=== PATIENT | male | born 1965 | race Hispanic/Latino ===

== ENCOUNTER 2021-08-29 13:19 | Inpatient (IN) | payer SELFPAY ==
[2021-08-29 14:12] LABS: Hemoglobin 4.7 g/dL (14.0-18.0); Mean Corpuscular HGB CONC 35.2 g/dL (32.0-36.0); Mean Corpuscular Hemoglobin 32.3 pg (27.0-31.0); Mean Corpuscular Volume 91.8 fL (78.0-98.0); RBC Distribution Width 12.7 % (11.5-14.5); Red Blood Cell (RBC) Count 1.46 mill/uL (4.70-6.10); Reflex for Review?? YES; White Blood Cell (WBC) Count 4.9 thou/uL (4.8-10.8)
[2021-08-29 14:17] LABS: Band 1 % (5-11); Eosinophils 1 % (0-10); Lymphocytes 49 % (21-51); MDiff Complete? YES; Mean Platelet Volume 7.3 fL (7.4-10.4); Monocytes 7 % (0-10); Myelocyte 2 % (0-0); Neutrophil 13 % (42-75); Ovalocytes SLIGHT = 2-5 cells (100X) (0-1/hpf); Platelet Count 43 thou/uL (130-400); Platelet Morphology Comment Appears Decreased; Reactive Lymphocytes 27 % (0-10); Tear Drops SLIGHT = 2-5 cells (100X) (0-1/hpf)
[2021-08-29 14:28] LABS: ALT (SGPT) 12 U/L (8-55); AST (SGOT) 22 U/L (5-34); Alkaline Phosphatase 73 U/L (40-110); Anion Gap 14 mmol/L (10-20); BUN (Urea Nitrogen) 14 mg/dL (8.4-25.7); Bilirubin, Total 0.5 mg/dL (0.2-1.2); Calc. Creatinine Clearance 0 mL/min (70-130); Calcium 8.6 mg/dL (7.8-10.44); Carbon Dioxide 23 mmol/L (22-29); Chloride 104 mmol/L (98-107); Estimated GFR 86; Globulin 2.7 g/dL (2.4-3.5); Glucose 89 mg/dL (70-105); Protein, Total 6.7 g/dL (6.0-8.3); Sodium 137 mmol/L (136-145)
[2021-08-29 15:02] LABS: CK (CPK) 84 U/L (30-200); Lipase 20 U/L (8-78)
[2021-08-29] MEDS ORDERED: Acetaminophen 325 MG TAB PO PRN (15:53)
[2021-08-29] MEDS ORDERED: Ondansetron PF 4 MG/2 ML Vial IVP PRN (15:53)
[2021-08-29] MEDS ORDERED: Ondansetron ODT 4 MG TAB PO PRN (15:53)
[2021-08-29 16:52] LABS: Bilirubin, Total 0.5 mg/dL (0.2-1.2)
[2021-08-29 17:19] LABS: Iron 170 ug/dL (65-175); Iron Binding Capacity, Total 221 mcg/dL (261-462); Transferrin, Serum 177 mg/dL (174-364)
[2021-08-29 20:37] VITALS: BMI 29.2
[2021-08-30 02:25] LABS: Hemoglobin 5.5 g/dL (14.0-18.0)
[2021-08-30 02:47] LABS: Anion Gap 15 mmol/L (10-20); BUN (Urea Nitrogen) 14 mg/dL (8.4-25.7); Calc. Creatinine Clearance 88 mL/min (70-130); Calcium 9.2 mg/dL (7.8-10.44); Carbon Dioxide 23 mmol/L (22-29); Chloride 106 mmol/L (98-107); Estimated GFR 80; Glucose 102 mg/dL (70-105); Potassium 4.5 mmol/L (3.5-5.1); Sodium 139 mmol/L (136-145)
[2021-08-30 06:55] LABS: Hemoglobin 6.4 g/dL (14.0-18.0); Mean Corpuscular Volume 91.3 fL (78.0-98.0); Mean Platelet Volume 7.2 fL (7.4-10.4); Platelet Count 58 thou/uL (130-400); RBC Distribution Width 12.8 % (11.5-14.5); Red Blood Cell (RBC) Count 2.05 mill/uL (4.70-6.10); White Blood Cell (WBC) Count 7.7 thou/uL (4.8-10.8)
[2021-08-30 07:11] LABS: Anion Gap 12 mmol/L (10-20); BUN (Urea Nitrogen) 14 mg/dL (8.4-25.7); Calc. Creatinine Clearance 89 mL/min (70-130); Calcium 8.7 mg/dL (7.8-10.44); Carbon Dioxide 24 mmol/L (22-29); Chloride 104 mmol/L (98-107); Estimated GFR 82; Glucose 92 mg/dL (70-105); Potassium 4.3 mmol/L (3.5-5.1); Sodium 136 mmol/L (136-145)
[2021-08-30 07:24] LABS: Band 2 % (5-11); Lymphocytes 75 % (21-51); MDiff Complete? YES; Monocytes 10 % (0-10); Neutrophil 4 % (42-75); Platelet Morphology Comment Appears Decreased; Reactive Lymphocytes 8 % (0-10)
[2021-08-30] MEDS ORDERED: Prevnar 13-Val Conj/PF 0.5 ML SYRINGE IM ONE (09:00)
[2021-08-30 16:18] VITALS: BP 116/72; TEMP 98.4
[2021-08-31] MEDS ORDERED: Allopurinol 300 MG TAB PO SCH (09:00)
[2021-09-01 15:14] LABS: Hemoglobin A2 2.5 % (1.8-3.2); Hemoglobin F 0 % (0.0-2.0)
== END 2021-08-30 19:00 | disposition home or self-care (01) | DRG 842 ==
LOC: ERS 13:19 → SURG A 15:25 → MSONC 20:14
PROVIDERS: ADMIT Hospitalist; ATTEND Internal Medicine
PROC: 30233N1 Transfusion of Nonautologous Red Blood Cells into Peripheral Vein, Percutaneous Approach (ICD-10-PCS; 2021-08-29)
PROC: 30233R1 Transfusion of Nonautologous Platelets into Peripheral Vein, Percutaneous Approach (ICD-10-PCS; principal; 2021-08-30)
DX: C83.10 Mantle cell lymphoma, unspecified site (principal); D69.6 Thrombocytopenia, unspecified; Z20.822 Contact with and (suspected) exposure to COVID-19; D63.0 Anemia in neoplastic disease; Z90.49 Acquired absence of other specified parts of digestive tract
CPT/HCPCS: 36415; 36430; 71045; 71250; 80048; 80053; 82247; 82550; 83021; 83540; 83550; 83615; 83690; 83880; 84466; 84484; 84550; 85025; 85060; 86850; 86900; 86901; 93005; 94760; J2405; P9016; P9035; U0003; U0005

== ENCOUNTER 2021-09-15 09:49 | Inpatient (IN) | payer SELFPAY ==
[2021-09-15 10:23] LABS: Hemoglobin 3.7 g/dL (14.0-18.0); Mean Corpuscular HGB CONC 35.8 g/dL (32.0-36.0); Mean Corpuscular Hemoglobin 31.7 pg (27.0-31.0); Mean Corpuscular Volume 88.6 fL (78.0-98.0); Mean Platelet Volume 8.6 fL (7.4-10.4); Platelet Count 15 thou/uL (130-400); RBC Distribution Width 13.3 % (11.5-14.5); Red Blood Cell (RBC) Count 1.18 mill/uL (4.70-6.10); White Blood Cell (WBC) Count 21.7 thou/uL (4.8-10.8)
[2021-09-15 10:44] LABS: ALT (SGPT) 17 U/L (8-55); AST (SGOT) 25 U/L (5-34); Albumin 3.9 g/dL (3.5-5.0); Alkaline Phosphatase 121 U/L (40-110); Anion Gap 14 mmol/L (10-20); BUN (Urea Nitrogen) 18 mg/dL (8.4-25.7); Bilirubin, Total 1.3 mg/dL (0.2-1.2); Calc. Creatinine Clearance 0 mL/min (70-130); Carbon Dioxide 22 mmol/L (22-29); Chloride 103 mmol/L (98-107); Estimated GFR 100; Globulin 3.2 g/dL (2.4-3.5); Glucose 114 mg/dL (70-105); Potassium 4.6 mmol/L (3.5-5.1); Protein, Total 7.1 g/dL (6.0-8.3); Sodium 134 mmol/L (136-145)
[2021-09-15 11:07] LABS: Band 1 % (5-11); Lymphocytes 91 % (21-51); MDiff Complete? YES; Metamyelocyte 1 % (0-0); Monocytes 6 % (0-10); Platelet Morphology Comment Appears Decreased; Polychromasia SLIGHT = 2-3 cells (100X) (0-2/hpf)
[2021-09-15] MEDS ORDERED: Ondansetron ODT 4 MG TAB PO PRN (12:39)
[2021-09-15] MEDS ORDERED: Bisacodyl 5 MG TAB PO PRN (12:39)
[2021-09-15] MEDS ORDERED: Bisacodyl 10 MG SUPP PR PRN (12:39)
[2021-09-15] MEDS ORDERED: Senokot S 8.6-50 MG TAB PO PRN (12:39)
[2021-09-15] MEDS ORDERED: Acetaminophen 500 MG TAB ONE (13:22)
[2021-09-15 15:03] LABS: SARS-CoV-2 NAA Rapid Test Not Detected (NotDetected)
[2021-09-15 15:18] LABS: Bilirubin Negative (Negative); Blood, Urine Negative (Negative); Clarity Clear (Clear); Glucose, Urine (Dipstick) Normal (Negative); Ketone, Urine Negative (Negative); Leukocyte Negative Leu/uL (Negative); Nitrite Negative (Negative); Protein, Urine (Dipstick) Negative (Neg-Trace); Specific Gravity, Urine 1.015 (1.002-1.036); Urobilinogen 6 mg/dL (Less than 2)
[2021-09-15 16:22] VITALS: BMI 28.3
[2021-09-15] MEDS: Acetaminophen 325 MG TAB PO PRN (19:50)
[2021-09-15] MEDS: Benzonatate 100 MG CAP PO SCH (19:51)
[2021-09-16 05:46] LABS: Hemoglobin 5.4 g/dL (14.0-18.0); Mean Corpuscular HGB CONC 34.9 g/dL (32.0-36.0); Mean Corpuscular Hemoglobin 30.6 pg (27.0-31.0); Mean Corpuscular Volume 87.8 fL (78.0-98.0); Mean Platelet Volume 9.6 fL (7.4-10.4); Platelet Count 10 thou/uL (130-400); RBC Distribution Width 14.2 % (11.5-14.5); Red Blood Cell (RBC) Count 1.77 mill/uL (4.70-6.10); White Blood Cell (WBC) Count 20.5 thou/uL (4.8-10.8)
[2021-09-16 06:10] LABS: Burr Cells SLIGHT = 2-5 cells (100X) (0-1/hpf); Lymphocytes 96 % (21-51); MDiff Complete? YES; Monocytes 4 % (0-10); Platelet Morphology Comment Appears Decreased
[2021-09-16 06:19] LABS: ALT (SGPT) 11 U/L (8-55); AST (SGOT) 17 U/L (5-34); Albumin 3.4 g/dL (3.5-5.0); Alkaline Phosphatase 107 U/L (40-110); Anion Gap 15 mmol/L (10-20); BUN (Urea Nitrogen) 18 mg/dL (8.4-25.7); Bilirubin, Total 1.9 mg/dL (0.2-1.2); Calc. Creatinine Clearance 107 mL/min (70-130); Calcium 8.4 mg/dL (7.8-10.44); Carbon Dioxide 21 mmol/L (22-29); Chloride 106 mmol/L (98-107); Estimated GFR 101; Globulin 2.7 g/dL (2.4-3.5); Glucose 102 mg/dL (70-105); Potassium 4.1 mmol/L (3.5-5.1); Protein, Total 6.1 g/dL (6.0-8.3); Sodium 138 mmol/L (136-145)
[2021-09-16] MEDS: Allopurinol 300 MG TAB PO SCH (08:33)
[2021-09-16] MEDS: Benzonatate 100 MG CAP PO SCH ×3 (08:33→19:42)
[2021-09-16] MEDS ORDERED: ceFAZolin 2 GM/Dextrose 50 ML 2 GM in Premix Bag 1 BAG IVPB SCH (10:15)
[2021-09-16] MEDS ORDERED: Lactated Ringer's 1,000 ML IV SCH (10:15)
[2021-09-16] MEDS ORDERED: fentaNYL Citrate/PF 100 MCG/2 ML SYRINGE ONE ×2 (15:26→15:37)
[2021-09-16] MEDS ORDERED: Bupivacaine/Epinephrine 0.25% 30 ML VIAL ONE (15:28)
[2021-09-16] MEDS ORDERED: Lidocaine 2% PF 5 ML VIAL ONE (15:36)
[2021-09-16] MEDS ORDERED: HYDROmorphone 2 MG/ML VIAL SLOW IVP PRN (15:49)
[2021-09-16] MEDS ORDERED: Meperidine HCl/PF 25 MG/ML VIAL SLOW IVP PRN ×2 (15:49)
[2021-09-16] MEDS ORDERED: Promethazine HCl 25 MG/ML VIAL IM PRN ×2 (15:49→17:17)
[2021-09-16] MEDS ORDERED: Ondansetron HCl/PF 4 MG/2 ML Vial IVP PRN ×2 (15:49→17:17)
[2021-09-16] MEDS ORDERED: Promethazine HCl 25 MG/ML VIAL IVPB PRN ×2 (15:49→17:17)
[2021-09-16] MEDS ORDERED: Morphine Sulfate 2 MG/ML SYRINGE SLOW IVP PRN (15:49)
[2021-09-16] MEDS ORDERED: Sodium Chloride 0.9% 100 ML ONE (15:55)
[2021-09-16] MEDS ORDERED: CEFAZOLIN 2 GM VIAL ONE (15:55)
[2021-09-16] MEDS ORDERED: Lidocaine 1% PF 5 ML VIAL ONE (16:00)
[2021-09-16] MEDS ORDERED: PROPOFOL 200 MG/20 ML VIAL ONE (16:00)
[2021-09-16] MEDS ORDERED: Ondansetron PF 4 MG/2 ML Vial ONE (16:00)
[2021-09-16] MEDS: traMADol HCl 50 MG TAB PO PRN (19:42)
[2021-09-16] MEDS: Acetaminophen 325 MG TAB PO PRN (23:51)
[2021-09-17] MEDS: traMADol HCl 50 MG TAB PO PRN (04:35)
[2021-09-17 05:59] LABS: Band 2 % (5-11); Hemoglobin 6.8 g/dL (14.0-18.0); Hypochromia SLIGHT = 6-15 cells (100X) (0-5/hpf); Lymphocytes 52 % (21-51); MDiff Complete? YES; Mean Corpuscular HGB CONC 34.9 g/dL (32.0-36.0); Mean Corpuscular Hemoglobin 30.1 pg (27.0-31.0); Mean Corpuscular Volume 86.3 fL (78.0-98.0); Mean Platelet Volume 8.6 fL (7.4-10.4); Monocytes 20 % (0-10); Neutrophil 14 % (42-75); Platelet Count 33 thou/uL (130-400); Platelet Morphology Comment Appears Decreased; RBC Distribution Width 14.6 % (11.5-14.5); Reactive Lymphocytes 12 % (0-10); Red Blood Cell (RBC) Count 2.27 mill/uL (4.70-6.10); White Blood Cell (WBC) Count 11.3 thou/uL (4.8-10.8)
[2021-09-17 06:02] LABS: Anion Gap 15 mmol/L (10-20); BUN (Urea Nitrogen) 20 mg/dL (8.4-25.7); Calc. Creatinine Clearance 115 mL/min (70-130); Calcium 8.9 mg/dL (7.8-10.44); Carbon Dioxide 21 mmol/L (22-29); Chloride 105 mmol/L (98-107); Estimated GFR 103; Glucose 96 mg/dL (70-105); Potassium 4.2 mmol/L (3.5-5.1); Sodium 137 mmol/L (136-145)
[2021-09-17] MEDS: Allopurinol 300 MG TAB PO SCH (09:59)
[2021-09-17] MEDS: Benzonatate 100 MG CAP PO SCH ×3 (09:59→20:40)
[2021-09-17] MEDS: HYDROcodone/Acetaminophen 5/325 mg Tablet PO PRN ×2 (10:03→20:38)
[2021-09-17] MEDS ORDERED: Fentanyl 100 MCG/2 ML VIAL ONE (11:14)
[2021-09-17] MEDS ORDERED: Sodium Bicarbonate 2.5 MEQ/5 ML VIAL ONE (11:14)
[2021-09-17] MEDS ORDERED: Guaifenesin DM 100-10/5 ML UDCUP PO PRN (20:59)
[2021-09-18] MEDS: HYDROcodone/Acetaminophen 5/325 mg Tablet PO PRN ×3 (03:15→20:51)
[2021-09-18 06:03] LABS: ALT (SGPT) 12 U/L (8-55); AST (SGOT) 18 U/L (5-34); Albumin 3.5 g/dL (3.5-5.0); Alkaline Phosphatase 121 U/L (40-110); Anion Gap 13 mmol/L (10-20); BUN (Urea Nitrogen) 18 mg/dL (8.4-25.7); Bilirubin, Total 1.3 mg/dL (0.2-1.2); Calc. Creatinine Clearance 112 mL/min (70-130); Calcium 8.8 mg/dL (7.8-10.44); Carbon Dioxide 25 mmol/L (22-29); Chloride 102 mmol/L (98-107); Estimated GFR 102; Glucose 112 mg/dL (70-105); Potassium 3.7 mmol/L (3.5-5.1); Protein, Total 6.5 g/dL (6.0-8.3); Sodium 136 mmol/L (136-145)
[2021-09-18 06:40] LABS: Band 1 % (5-11); Hemoglobin 7.2 g/dL (14.0-18.0); Lymphocytes 79 % (21-51); MDiff Complete? YES; Mean Corpuscular HGB CONC 34.8 g/dL (32.0-36.0); Mean Corpuscular Hemoglobin 30.1 pg (27.0-31.0); Mean Corpuscular Volume 86.5 fL (78.0-98.0); Mean Platelet Volume 8.3 fL (7.4-10.4); Metamyelocyte 1 % (0-0); Monocytes 3 % (0-10); Myelocyte 1 % (0-0); Neutrophil 5 % (42-75); Platelet Count 24 thou/uL (130-400); Platelet Morphology Comment Appears Decreased; RBC Distribution Width 14.3 % (11.5-14.5); RBC Morphology Normal; Reactive Lymphocytes 3 % (0-10); White Blood Cell (WBC) Count 5.9 thou/uL (4.8-10.8)
[2021-09-18] MEDS: Allopurinol 300 MG TAB PO SCH (10:31)
[2021-09-18] MEDS: Benzonatate 100 MG CAP PO SCH ×3 (10:31→20:51)
[2021-09-19] MEDS: Allopurinol 300 MG TAB PO SCH (08:34)
[2021-09-19] MEDS: Benzonatate 100 MG CAP PO SCH ×3 (08:34→20:06)
[2021-09-19 09:34] LABS: Hemoglobin 7.3 g/dL (14.0-18.0); Mean Corpuscular HGB CONC 33.5 g/dL (32.0-36.0); Mean Corpuscular Hemoglobin 29.3 pg (27.0-31.0); Mean Corpuscular Volume 87.4 fL (78.0-98.0); Mean Platelet Volume 9.2 fL (7.4-10.4); Platelet Count 19 thou/uL (130-400); RBC Distribution Width 13.9 % (11.5-14.5); Red Blood Cell (RBC) Count 2.49 mill/uL (4.70-6.10); White Blood Cell (WBC) Count 4.4 thou/uL (4.8-10.8)
[2021-09-19 10:26] LABS: Lymphocytes 93 % (21-51); MDiff Complete? YES; Monocytes 3 % (0-10); Neutrophil 4 % (42-75); Platelet Morphology Comment Appears Decreased; RBC Morphology Normal
[2021-09-20] MEDS: traMADol HCl 50 MG TAB PO PRN (05:16)
[2021-09-20] MEDS: Allopurinol 300 MG TAB PO SCH (09:23)
[2021-09-20] MEDS: Benzonatate 100 MG CAP PO SCH ×3 (09:23→19:57)
[2021-09-20 15:02] LABS: Hemoglobin 8.4 g/dL (14.0-18.0); Mean Corpuscular HGB CONC 35.6 g/dL (32.0-36.0); Mean Corpuscular Hemoglobin 30.8 pg (27.0-31.0); Mean Corpuscular Volume 86.4 fL (78.0-98.0); Mean Platelet Volume 8.4 fL (7.4-10.4); Platelet Count 31 thou/uL (130-400); RBC Distribution Width 13.6 % (11.5-14.5); Red Blood Cell (RBC) Count 2.73 mill/uL (4.70-6.10); White Blood Cell (WBC) Count 5.4 thou/uL (4.8-10.8)
[2021-09-20 15:42] LABS: Band 3 % (5-11); Differential Comment Immature Cell(s); Lymphocytes 71 % (21-51); MDiff Complete? YES; Monocytes 16 % (0-10); Myelocyte 1 % (0-0); Neutrophil 1 % (42-75); Ovalocytes SLIGHT = 2-5 cells (100X) (0-1/hpf); Platelet Morphology Comment Appears Decreased; Polychromasia SLIGHT = 2-3 cells (100X) (0-2/hpf); Reactive Lymphocytes 4 % (0-10)
[2021-09-21 05:37] LABS: Hemoglobin 7.5 g/dL (14.0-18.0); Mean Corpuscular HGB CONC 34.7 g/dL (32.0-36.0); Mean Corpuscular Hemoglobin 29.9 pg (27.0-31.0); Mean Corpuscular Volume 86.2 fL (78.0-98.0); Mean Platelet Volume 8.5 fL (7.4-10.4); Platelet Count 26 thou/uL (130-400); RBC Distribution Width 13.5 % (11.5-14.5); White Blood Cell (WBC) Count 6.8 thou/uL (4.8-10.8)
[2021-09-21 05:52] LABS: Band 1 % (5-11); Hypochromia SLIGHT = 6-15 cells (100X) (0-5/hpf); Lymphocytes 81 % (21-51); MDiff Complete? YES; Monocytes 9 % (0-10); Neutrophil 8 % (42-75); Platelet Morphology Comment Appears Decreased; Reactive Lymphocytes 1 % (0-10)
[2021-09-21] MEDS: Allopurinol 300 MG TAB PO SCH (10:44)
[2021-09-21] MEDS: Benzonatate 100 MG CAP PO SCH ×3 (10:44→20:19)
[2021-09-22 05:06] LABS: Hemoglobin 8.3 g/dL (14.0-18.0); Mean Corpuscular HGB CONC 34.6 g/dL (32.0-36.0); Mean Corpuscular Hemoglobin 29.3 pg (27.0-31.0); Mean Corpuscular Volume 84.6 fL (78.0-98.0); Mean Platelet Volume 8.8 fL (7.4-10.4); Platelet Count 26 thou/uL (130-400); RBC Distribution Width 13.2 % (11.5-14.5); Red Blood Cell (RBC) Count 2.82 mill/uL (4.70-6.10); White Blood Cell (WBC) Count 8.5 thou/uL (4.8-10.8)
[2021-09-22 05:59] LABS: Band 2 % (5-11); Lymphocytes 84 % (21-51); MDiff Complete? YES; Monocytes 4 % (0-10); Myelocyte 1 % (0-0); Neutrophil 1 % (42-75); Platelet Morphology Comment Appears Decreased; RBC Morphology Normal
[2021-09-22] MEDS: Benzonatate 100 MG CAP PO SCH ×3 (10:50→22:25)
[2021-09-22] MEDS: Allopurinol 300 MG TAB PO SCH (10:50)
[2021-09-22] MEDS ORDERED: Acetaminophen 500 MG TAB PO PRN (13:58)
[2021-09-22] MEDS ORDERED: diphenhydrAMINE 50 MG in Sodium Chloride 0.9% 50 ML IVPB SCH (14:00)
[2021-09-22 14:48] LABS: Reference Lab Name NEOGENOMICS
[2021-09-22 14:49] LABS: Ref Lab Test Ordered MORPHOLOGY ANALYSIS
[2021-09-23 05:31] LABS: Hemoglobin 7.3 g/dL (14.0-18.0); Mean Corpuscular HGB CONC 35.4 g/dL (32.0-36.0); Mean Corpuscular Hemoglobin 29.8 pg (27.0-31.0); Mean Corpuscular Volume 84.2 fL (78.0-98.0); Mean Platelet Volume 8.3 fL (7.4-10.4); Platelet Count 19 thou/uL (130-400); Red Blood Cell (RBC) Count 2.44 mill/uL (4.70-6.10); White Blood Cell (WBC) Count 8.2 thou/uL (4.8-10.8)
[2021-09-23 05:48] LABS: Band 4 % (5-11); Hypochromia SLIGHT = 6-15 cells (100X) (0-5/hpf); Lymphocytes 82 % (21-51); MDiff Complete? YES; Monocytes 3 % (0-10); Neutrophil 11 % (42-75); Platelet Morphology Comment Appears Decreased
[2021-09-23] MEDS ORDERED: BENDAMUSTINE IVPB SCH ×2 (06:00→09:30)
[2021-09-23] MEDS ORDERED: SODIUM CHLORIDE 0.9% IVPB SCH ×2 (06:00→09:30)
[2021-09-23] MEDS: Benzonatate 100 MG CAP PO SCH ×3 (09:45→20:34)
[2021-09-23] MEDS: Allopurinol 300 MG TAB PO SCH (09:45)
[2021-09-23] MEDS: Ondansetron PF 4 MG/2 ML Vial IVP PRN (15:21)
[2021-09-24] MEDS: Ondansetron PF 4 MG/2 ML Vial IVP PRN (00:31)
[2021-09-24 05:24] LABS: ALT (SGPT) 47 U/L (8-55); AST (SGOT) 63 U/L (5-34); Albumin 3.8 g/dL (3.5-5.0); Alkaline Phosphatase 158 U/L (40-110); Anion Gap 13 mmol/L (10-20); BUN (Urea Nitrogen) 23 mg/dL (8.4-25.7); Bilirubin, Total 0.7 mg/dL (0.2-1.2); Calc. Creatinine Clearance 77 mL/min (70-130); Calcium 9.2 mg/dL (7.8-10.44); Carbon Dioxide 25 mmol/L (22-29); Chloride 103 mmol/L (98-107); Estimated GFR 71; Glucose 102 mg/dL (70-105); Potassium 4.5 mmol/L (3.5-5.1); Protein, Total 6.8 g/dL (6.0-8.3); Sodium 136 mmol/L (136-145); Uric Acid 4.7 mg/dL (3.5-7.2)
[2021-09-24 06:34] LABS: Hemoglobin 7.2 g/dL (14.0-18.0); Mean Corpuscular HGB CONC 34.6 g/dL (32.0-36.0); Mean Corpuscular Hemoglobin 29.2 pg (27.0-31.0); Mean Corpuscular Volume 84.2 fL (78.0-98.0); Mean Platelet Volume 7.9 fL (7.4-10.4); Platelet Count 32 thou/uL (130-400); RBC Distribution Width 13.3 % (11.5-14.5); Red Blood Cell (RBC) Count 2.46 mill/uL (4.70-6.10); White Blood Cell (WBC) Count 2.2 thou/uL (4.8-10.8)
[2021-09-24] MEDS ORDERED: BENDAMUSTINE IVPB SCH (06:45)
[2021-09-24] MEDS ORDERED: SODIUM CHLORIDE 0.9% IVPB SCH (06:45)
[2021-09-24 07:07] LABS: Anisocytosis SLIGHT = 6-15 cells (100X) (0-5/hpf); Band 10 % (5-11); Lymphocytes 71 % (21-51); MDiff Complete? YES; Metamyelocyte 1 % (0-0); Monocytes 10 % (0-10); Neutrophil 8 % (42-75); Platelet Morphology Comment Appears Decreased
[2021-09-24] MEDS: Allopurinol 300 MG TAB PO SCH (09:16)
[2021-09-24] MEDS: Benzonatate 100 MG CAP PO SCH ×3 (09:16→20:41)
[2021-09-24] MEDS ORDERED: PEGFILGRASTIM-JMDB 6 MG/0.6 ML SYRINGE SQ SCH (12:15)
[2021-09-25] MEDS: Ondansetron PF 4 MG/2 ML Vial IVP PRN (06:04)
[2021-09-25 06:37] LABS: ALT (SGPT) 39 U/L (8-55); AST (SGOT) 35 U/L (5-34); Albumin 3.7 g/dL (3.5-5.0); Alkaline Phosphatase 131 U/L (40-110); Anion Gap 12 mmol/L (10-20); BUN (Urea Nitrogen) 28 mg/dL (8.4-25.7); Bilirubin, Total 0.8 mg/dL (0.2-1.2); Calc. Creatinine Clearance 78 mL/min (70-130); Carbon Dioxide 24 mmol/L (22-29); Chloride 103 mmol/L (98-107); Estimated GFR 72; Glucose 100 mg/dL (70-105); Potassium 4.2 mmol/L (3.5-5.1); Protein, Total 6.7 g/dL (6.0-8.3); Sodium 135 mmol/L (136-145)
[2021-09-25 06:47] LABS: Hemoglobin 6.5 g/dL (14.0-18.0); Mean Corpuscular HGB CONC 34.3 g/dL (32.0-36.0); Mean Corpuscular Hemoglobin 29.2 pg (27.0-31.0); Mean Corpuscular Volume 85.1 fL (78.0-98.0); Mean Platelet Volume 8.5 fL (7.4-10.4); Platelet Count 27 thou/uL (130-400); RBC Distribution Width 13.2 % (11.5-14.5); Red Blood Cell (RBC) Count 2.22 mill/uL (4.70-6.10); White Blood Cell (WBC) Count 1.6 thou/uL (4.8-10.8)
[2021-09-25 07:05] LABS: Band 4 % (5-11); Differential Comment Immature Cell(s); Lymphocytes 68 % (21-51); MDiff Complete? YES; Metamyelocyte 3 % (0-0); Monocytes 10 % (0-10); Myelocyte 6 % (0-0); Neutrophil 7 % (42-75); Platelet Morphology Comment Appears Decreased
[2021-09-25] MEDS: Benzonatate 100 MG CAP PO SCH ×3 (07:50→21:17)
[2021-09-25] MEDS: Allopurinol 300 MG TAB PO SCH (07:50)
[2021-09-25 17:45] LABS: Reference Lab Name NEOGENOMICS
[2021-09-25 17:56] LABS: Ref Lab Test Ordered FISH CLL
[2021-09-26 06:01] LABS: Hemoglobin 8.2 g/dL (14.0-18.0); Mean Corpuscular HGB CONC 34.3 g/dL (32.0-36.0); Mean Corpuscular Hemoglobin 28.6 pg (27.0-31.0); Mean Corpuscular Volume 83.4 fL (78.0-98.0); Platelet Count 21 thou/uL (130-400); RBC Distribution Width 13.8 % (11.5-14.5); Red Blood Cell (RBC) Count 2.87 mill/uL (4.70-6.10); White Blood Cell (WBC) Count 1.6 thou/uL (4.8-10.8)
[2021-09-26 06:07] LABS: ALT (SGPT) 33 U/L (8-55); AST (SGOT) 23 U/L (5-34); Albumin 3.8 g/dL (3.5-5.0); Alkaline Phosphatase 120 U/L (40-110); Anion Gap 14 mmol/L (10-20); BUN (Urea Nitrogen) 25 mg/dL (8.4-25.7); Bilirubin, Total 1.1 mg/dL (0.2-1.2); Calc. Creatinine Clearance 98 mL/min (70-130); Calcium 9.1 mg/dL (7.8-10.44); Carbon Dioxide 23 mmol/L (22-29); Chloride 103 mmol/L (98-107); Estimated GFR 96; Glucose 95 mg/dL (70-105); Potassium 4.3 mmol/L (3.5-5.1); Protein, Total 6.8 g/dL (6.0-8.3); Sodium 136 mmol/L (136-145); Uric Acid 4.6 mg/dL (3.5-7.2)
[2021-09-26 06:41] LABS: Band 14 % (5-11); Lymphocytes 35 % (21-51); MDiff Complete? YES; Metamyelocyte 1 % (0-0); Monocytes 24 % (0-10); Myelocyte 4 % (0-0); Neutrophil 22 % (42-75); Platelet Morphology Comment Appears Decreased
[2021-09-26 08:19] VITALS: BP 120/67
[2021-09-26] MEDS: Allopurinol 300 MG TAB PO SCH (09:57)
[2021-09-26] MEDS: Benzonatate 100 MG CAP PO SCH (09:57)
[2021-09-26 12:33] VITALS: TEMP 98.1
[2021-09-26] MEDS: Ondansetron PF 4 MG/2 ML Vial IVP PRN (14:54)
[2021-09-28 11:27] LABS: Reference Lab Name NEOGENOMICS
[2021-09-28 11:29] LABS: Ref Lab Test Ordered FULL CONSULT
== END 2021-09-26 16:06 | disposition home or self-care (01) | DRG 823 ==
LOC: SUATTDRO 09:49 → ERS 09:49 → MSONC 12:28
PROVIDERS: ADMIT Family Medicine; ATTEND Family Medicine
PROC: 30233N1 Transfusion of Nonautologous Red Blood Cells into Peripheral Vein, Percutaneous Approach (ICD-10-PCS; 2021-09-15)
PROC: 07B50ZX Excision of Right Axillary Lymphatic, Open Approach, Diagnostic (ICD-10-PCS; 2021-09-16)
PROC: 0JH60WZ Insertion of Totally Implantable Vascular Access Device into Chest Subcutaneous Tissue and Fascia, Open Approach (ICD-10-PCS; 2021-09-16)
PROC: 02HV33Z Insertion of Infusion Device into Superior Vena Cava, Percutaneous Approach (ICD-10-PCS; 2021-09-16)
PROC: B5181ZA Fluoroscopy of Superior Vena Cava using Low Osmolar Contrast, Guidance (ICD-10-PCS; 2021-09-16)
PROC: 6A551Z2 Pheresis of Platelets, Multiple (ICD-10-PCS; 2021-09-16)
PROC: 07DR3ZX Extraction of Iliac Bone Marrow, Percutaneous Approach, Diagnostic (ICD-10-PCS; 2021-09-17)
PROC: 079T3ZX Drainage of Bone Marrow, Percutaneous Approach, Diagnostic (ICD-10-PCS; 2021-09-17)
PROC: 3E0430M Introduction of Antineoplastic, Monoclonal Antibody, into Central Vein, Percutaneous Approach (ICD-10-PCS; principal; 2021-09-23)
PROC: 3E04305 Introduction of Other Antineoplastic into Central Vein, Percutaneous Approach (ICD-10-PCS; 2021-09-23)
DX: C83.18 Mantle cell lymphoma, lymph nodes of multiple sites (principal); D61.810 Antineoplastic chemotherapy induced pancytopenia; E87.1 Hypo-osmolality and hyponatremia; Z20.822 Contact with and (suspected) exposure to COVID-19; D63.0 Anemia in neoplastic disease; T45.1X5A Adverse effect of antineoplastic and immunosuppressive drugs, initial encounter; Z88.8 Allergy status to other drugs, medicaments and biological substances; Z90.49 Acquired absence of other specified parts of digestive tract
CPT/HCPCS: 36415; 36430; 38222; 71045; 77012; 80048; 80053; 81003; 82728; 83540; 83615; 84550; 85025; 85097; 86850; 86860; 86870; 86880; 86900; 86901; 86905; 86921; 86922; 86978; 88184; 88185; 88237; 88305; 88307; 88311; 88313; 88325; 88341; 88342; 93005; C1788; C1889; J0690; J1200; J1642; J2001; J2405; J2704; J3010; J3490; J7030; J9034; P9016; P9035; Q5108; Q5115; U0003; U0005

== ENCOUNTER 2021-10-05 08:57 | Day surgery (SDC) | payer SELFPAY ==
[2021-10-05] MEDS ORDERED: Acetaminophen 500 MG TAB ONE (09:29)
[2021-10-05] MEDS ORDERED: diphenhydrAMINE 25 MG CAP ONE (09:29)
[2021-10-05 10:15] VITALS: TEMP 98.3
[2021-10-05 12:38] VITALS: BP 108/58
== END 2021-10-05 15:13 | disposition home or self-care (01) ==
LOC: ONC/OP 08:57
PROVIDERS: ATTEND Internal Medicine Hematology & Oncology
PROC: 30233N1 Transfusion of Nonautologous Red Blood Cells into Peripheral Vein, Percutaneous Approach (ICD-10-PCS; principal; 2021-10-05)
DX: D64.9 Anemia, unspecified (principal); D69.6 Thrombocytopenia, unspecified
CPT/HCPCS: 36430; 86850; 86870; 86900; 86901; 86922; J1642; P9016

== ENCOUNTER 2021-10-20 13:58 | Day surgery (SDC) | payer SELFPAY ==
[2021-10-20 14:31] VITALS: BMI 27.5
[2021-10-20] MEDS ORDERED: diphenhydrAMINE 25 MG CAP PO PRN (15:39)
[2021-10-20] MEDS: Acetaminophen 500 MG TAB PO PRN ×2 (18:06→22:27)
[2021-10-21 03:34] VITALS: BP 111/55; TEMP 98
[2021-10-21 06:38] LABS: #Eosinphils 0.1 thou/uL (0.0-0.7); #Lymphocytes 1.3 thou/uL (1.20-3.40); #Monocytes 0.5 thou/uL (0.11-0.59); #Neutrophils 1.5 thou/uL (1.40-6.50); %Basophils 0.4 % (0.0-1.0); %Eosinophils 2.9 % (0.0-10.0); %Lymphocytes 39.6 % (21.0-51.0); %Monocytes 14.3 % (0.0-10.0); %Neutrophils 42.8 % (42.0-75.0); Hemoglobin 5.4 g/dL (14.0-18.0); Mean Corpuscular HGB CONC 35.4 g/dL (32.0-36.0); Mean Corpuscular Hemoglobin 29.9 pg (27.0-31.0); Mean Corpuscular Volume 84.5 fL (78.0-98.0); Mean Platelet Volume 7.5 fL (7.4-10.4); Platelet Count 114 thou/uL (130-400); Platelet Morphology Comment Appears Decreased; RBC Distribution Width 13.4 % (11.5-14.5); Red Blood Cell (RBC) Count 1.81 mill/uL (4.70-6.10); White Blood Cell (WBC) Count 3.4 thou/uL (4.8-10.8)
[2021-10-21] MEDS ORDERED: Prevnar 13-Val Conj/PF 0.5 ML SYRINGE IM ONE (09:00)
== END 2021-10-21 04:05 | disposition home or self-care (01) ==
LOC: SDC 13:58 → 2NO 14:00 → SDC 10-21 04:05
PROVIDERS: ATTEND Internal Medicine Hematology & Oncology
PROC: 30233N1 Transfusion of Nonautologous Red Blood Cells into Peripheral Vein, Percutaneous Approach (ICD-10-PCS; principal; 2021-10-20)
DX: D64.9 Anemia, unspecified (principal); Z88.8 Allergy status to other drugs, medicaments and biological substances; Z20.822 Contact with and (suspected) exposure to COVID-19
CPT/HCPCS: 36430; 85025; 86850; 86900; 86901; 86921; J1642; P9016; U0003; U0005

== ENCOUNTER 2021-10-28 09:37 | Day surgery (SDC) | payer SELFPAY ==
[2021-10-28] MEDS ORDERED: diphenhydrAMINE 25 MG CAP ONE (09:58)
[2021-10-28] MEDS ORDERED: Acetaminophen 500 MG TAB ONE (09:58)
[2021-10-28 15:58] VITALS: BP 115/55; TEMP 98.3
== END 2021-10-28 15:59 | disposition home or self-care (01) ==
LOC: ONC/OP 09:37
PROVIDERS: ATTEND Internal Medicine Hematology & Oncology
PROC: 30233N1 Transfusion of Nonautologous Red Blood Cells into Peripheral Vein, Percutaneous Approach (ICD-10-PCS; principal; 2021-10-28)
DX: D64.9 Anemia, unspecified (principal); D69.6 Thrombocytopenia, unspecified; Z88.8 Allergy status to other drugs, medicaments and biological substances
CPT/HCPCS: 36430; 86850; 86900; 86901; 86922; J1642; P9016

== ENCOUNTER 2021-11-16 10:13 | Day surgery (SDC) | payer SELFPAY ==
[~2021-11-16 10:13] MED LIST: Acetaminophen 500 MG TAB PO SCH; diphenhydrAMINE 25 MG CAP PO SCH
[2021-11-16] MEDS ORDERED: Acetaminophen 500 MG TAB ONE (10:25)
[2021-11-16] MEDS ORDERED: diphenhydrAMINE 25 MG CAP ONE (10:25)
[2021-11-16 14:40] VITALS: BP 119/59; TEMP 98.5
== END 2021-11-16 14:41 | disposition home or self-care (01) ==
LOC: ONC/OP 10:13
PROVIDERS: ATTEND Internal Medicine Hematology & Oncology
PROC: 30233N1 Transfusion of Nonautologous Red Blood Cells into Peripheral Vein, Percutaneous Approach (ICD-10-PCS; principal; 2021-11-16)
DX: D64.9 Anemia, unspecified (principal); D69.6 Thrombocytopenia, unspecified; Z88.8 Allergy status to other drugs, medicaments and biological substances
CPT/HCPCS: 36430; 86850; 86900; 86901; 86922; J1642; P9016

== ENCOUNTER 2021-11-24 09:31 | Day surgery (SDC) | payer SELFPAY ==
[2021-11-24] MEDS ORDERED: diphenhydrAMINE 25 MG CAP ONE (10:40)
[2021-11-24] MEDS ORDERED: Acetaminophen 500 MG TAB ONE (10:40)
[2021-11-24 17:24] VITALS: BP 135/61; TEMP 97.7
== END 2021-11-24 17:25 | disposition home or self-care (01) ==
LOC: ONC/OP 09:31
PROVIDERS: ATTEND Internal Medicine Hematology & Oncology
PROC: 30233N1 Transfusion of Nonautologous Red Blood Cells into Peripheral Vein, Percutaneous Approach (ICD-10-PCS; principal; 2021-11-24)
DX: D64.9 Anemia, unspecified (principal); Z88.8 Allergy status to other drugs, medicaments and biological substances
CPT/HCPCS: 36430; 86850; 86900; 86901; 86922; J1642; P9016

== ENCOUNTER 2023-09-23 12:07 | Emergency (ER) | payer OTHER, SELFPAY ==
[2023-09-23 12:59] LABS: #Basophils 0.06 10x3/uL (0.0-0.2); %Basophils 0.7 % (0.0-1.0); %Eosinophils 4.5 % (0.0-10.0); %Lymphocytes 39.3 % (21.0-51.0); %Monocytes 9.5 % (0.0-10.0); Hematocrit 39.7 % (42.0-52.0); Hemoglobin 13.9 g/dL (14.0-18.0); Mean Corpuscular Hemoglobin 33.5 pg (27.0-31.0); Mean Corpuscular Volume 95.7 fL (78.0-98.0); Mean Platelet Volume 9.2 fL (7.4-10.4); Platelet Count 93 10x3/uL (130-400); RBC Distribution Width 13.6 % (11.5-14.5); Red Blood Cell (RBC) Count 4.15 mill/uL (4.70-6.10)
[2023-09-23 13:10] LABS: ALT (SGPT) 43 U/L (8-55); AST (SGOT) 39 U/L (5-34); Alkaline Phosphatase 62 U/L (40-110); Anion Gap 13 mmol/L (10-20); BUN (Urea Nitrogen) 14 mg/dL (8.4-25.7); Bilirubin, Total 0.7 mg/dL (0.2-1.2); Calc. Creatinine Clearance 0 mL/min (70-130); Calcium 9.7 mg/dL (7.8-10.44); Carbon Dioxide 22 mmol/L (22-29); Chloride 106 mmol/L (98-107); Estimated GFR 100; Globulin 2.8 g/dL (2.4-3.5); Glucose 90 mg/dL (70-105); Potassium 4.1 mmol/L (3.5-5.1); Protein, Total 6.8 g/dL (6.0-8.3); Sodium 137 mmol/L (136-145)
[2023-09-23 13:12] LABS: Prothrombin Time 13.5 sec (12.0-14.7)
== END 2023-09-23 16:42 | disposition home or self-care (01) ==
LOC: ERS 12:07
DX: R22.0 Localized swelling, mass and lump, head (principal); R22.1 Localized swelling, mass and lump, neck
CPT/HCPCS: 36415; 80053; 85025; 85610; 85730; 86850; 86900; 86901; 99283

== ENCOUNTER → 2023-11-24 | Day surgery (SDC) | payer OTHER, SELFPAY ==
[~2023-11-24] MED LIST changes: -Acetaminophen 500 MG TAB PO SCH; +Iopamidol 30 ML ONE; +Midazolam HCl 2 mg/2 ml Vial ONE; -diphenhydrAMINE 25 MG CAP PO SCH; +fentaNYL 50 mcg/mL 1 mL Vial ONE
[2023-11-24 09:58] LABS: Hematocrit 18.5 % (42.0-52.0); Hemoglobin 6.5 g/dL (14.0-18.0); Mean Corpuscular HGB CONC 35.1 g/dL (32.0-36.0); Mean Corpuscular Hemoglobin 32.2 pg (27.0-31.0); Mean Corpuscular Volume 91.6 fL (78.0-98.0); Mean Platelet Volume 10.4 fL (7.4-10.4); Platelet Count 42 10x3/uL (130-400); RBC Distribution Width 13.5 % (11.5-14.5); Red Blood Cell (RBC) Count 2.02 mill/uL (4.70-6.10)
[2023-11-24 10:07] LABS: INR-International Normal Ratio 1.1; Prothrombin Time 13.7 sec (12.0-14.7)
[2023-11-24 10:08] LABS: PTT 33.8 sec (22.9-36.1)
[2023-11-24 10:23] LABS: Band 1 % (5-11); Eosinophils 2 % (0-10); Lymphocytes 84 % (21-51); Monocytes 3 % (0-10); Neutrophil 9 % (42-75); Platelet Adequacy Comment Significant Decrease; RBC Morphology Within Normal Limits
[2023-12-01 11:04] LABS: Reference Lab Name NEO
[2023-12-05 08:12] LABS: Ref Lab Test Ordered FISH Analysis/ BM; Reference Lab Name NEO
== END ==
LOC: CT 09:30
PROVIDERS: ATTEND Internal Medicine Hematology & Oncology
PROC: 07DR3ZX Extraction of Iliac Bone Marrow, Percutaneous Approach, Diagnostic (ICD-10-PCS; principal; 2023-11-24)
DX: C83.11 Mantle cell lymphoma, lymph nodes of head, face, and neck (principal); D63.8 Anemia in other chronic diseases classified elsewhere; Z79.899 Other long term (current) drug therapy
CPT/HCPCS: 36598; 38222; 77012; 85025; 85097; 85610; 85730; 88184; 88237; 88305; 88311; 88313; J1642; J2250; J3010; Q9967

== ENCOUNTER 2023-11-27 15:07 | Inpatient (IN) | payer OTHER ==
[2023-11-27 16:41] LABS: Hemoglobin 5.6 g/dL (14.0-18.0); Mean Corpuscular Hemoglobin 32.4 pg (27.0-31.0); Mean Corpuscular Volume 92.5 fL (78.0-98.0); Mean Platelet Volume 10.2 fL (7.4-10.4); Platelet Count 48 10x3/uL (130-400); RBC Distribution Width 13.5 % (11.5-14.5); Red Blood Cell (RBC) Count 1.73 mill/uL (4.70-6.10)
[2023-11-27 16:44] LABS: ALT (SGPT) 22 U/L (8-55); AST (SGOT) 29 U/L (5-34); Albumin 4.1 g/dL (3.5-5.0); Alkaline Phosphatase 97 U/L (40-110); Anion Gap 15 mmol/L (10-20); BUN (Urea Nitrogen) 19 mg/dL (8.4-25.7); Calc. Creatinine Clearance 0 mL/min (70-130); Calcium 9.3 mg/dL (7.8-10.44); Carbon Dioxide 23 mmol/L (22-29); Chloride 106 mmol/L (98-107); Estimated GFR 75; Globulin 2.7 g/dL (2.4-3.5); Glucose 101 mg/dL (70-105); Lipase 30 U/L (8-78); Potassium 4.5 mmol/L (3.5-5.1); Protein, Total 6.8 g/dL (6.0-8.3); Sodium 139 mmol/L (136-145)
[2023-11-27 16:49] LABS: Troponin I Less than 0.010 ng/mL (< 0.028)
[2023-11-27 17:23] LABS: Band 2 % (5-11); Lymphocytes 76 % (21-51); Monocytes 6 % (0-10); Neutrophil 16 % (42-75); Platelet Adequacy Comment Significant Decrease; RBC Morphology Within Normal Limits; Reflex for Review?? YES
[2023-11-27] MEDS ORDERED: Ondansetron ODT 4 MG TAB PO PRN (20:33)
[2023-11-27] MEDS ORDERED: Calcium Carbonate 500 MG ChewTAB PO PRN (20:33)
[2023-11-27] MEDS ORDERED: Acetaminophen 325 MG TAB PO PRN (20:33)
[2023-11-27] MEDS ORDERED: Senokot S 8.6-50 MG TAB PO PRN (20:33)
[2023-11-27 21:49] LABS: Influenza A by NAA Not Detected (NotDetected); Influenza B by NAA Not Detected (NotDetected); SARS-CoV-2 NAA Rapid Test Not Detected (NotDetected)
[2023-11-27 22:08] VITALS: BMI 28.7
[2023-11-28 08:26] LABS: Hematocrit 21.8 % (42.0-52.0); Hemoglobin 7.4 g/dL (14.0-18.0); Mean Corpuscular HGB CONC 33.9 g/dL (32.0-36.0); Mean Corpuscular Hemoglobin 31.2 pg (27.0-31.0); Mean Platelet Volume 10.5 fL (7.4-10.4); Platelet Count 39 10x3/uL (130-400); RBC Distribution Width 14.9 % (11.5-14.5); Red Blood Cell (RBC) Count 2.37 mill/uL (4.70-6.10)
[2023-11-28 08:57] LABS: Band 4 % (5-11); Eosinophils 3 % (0-10); Lymphocytes 69 % (21-51); Monocytes 1 % (0-10); Neutrophil 19 % (42-75); Platelet Adequacy Comment Significant Decrease; RBC Morphology Within Normal Limits; Reactive Lymphocytes 4 % (0-10)
[2023-11-28 09:15] LABS: ALT (SGPT) 18 U/L (8-55); AST (SGOT) 29 U/L (5-34); Albumin 3.8 g/dL (3.5-5.0); Alkaline Phosphatase 90 U/L (40-110); Anion Gap 14 mmol/L (10-20); BUN (Urea Nitrogen) 17 mg/dL (8.4-25.7); Bilirubin, Total 1.2 mg/dL (0.2-1.2); Calc. Creatinine Clearance 85 mL/min (70-130); Calcium 9.1 mg/dL (7.8-10.44); Carbon Dioxide 23 mmol/L (22-29); Chloride 105 mmol/L (98-107); Estimated GFR 84; Globulin 2.4 g/dL (2.4-3.5); Glucose 95 mg/dL (70-105); Potassium 4.4 mmol/L (3.5-5.1); Protein, Total 6.2 g/dL (6.0-8.3); Sodium 138 mmol/L (136-145)
[2023-11-28] MEDS: Ondansetron PF 4 MG/2 ML Vial IVP PRN (09:42)
[2023-11-28 16:48] VITALS: BMI 28.7
[2023-11-29 05:40] LABS: Anion Gap 11 mmol/L (10-20); BUN (Urea Nitrogen) 19 mg/dL (8.4-25.7); Calc. Creatinine Clearance 86 mL/min (70-130); Calcium 8.9 mg/dL (7.8-10.44); Carbon Dioxide 24 mmol/L (22-29); Chloride 106 mmol/L (98-107); Estimated GFR 85; Glucose 94 mg/dL (70-105); Potassium 4.1 mmol/L (3.5-5.1); Sodium 137 mmol/L (136-145); Uric Acid 10.6 mg/dL (3.5-7.2)
[2023-11-29 06:11] LABS: #Basophils Less than 0.03 10x3/uL (0.0-0.2); %Basophils 0.1 % (0.0-1.0); %Eosinophils 0.7 % (0.0-10.0); %Lymphocytes 75.8 % (21.0-51.0); %Monocytes 13.2 % (0.0-10.0); %Neutrophils 9.9 % (42.0-75.0); Hematocrit 18.1 % (42.0-52.0); Hemoglobin 6.3 g/dL (14.0-18.0); Mean Corpuscular HGB CONC 34.8 g/dL (32.0-36.0); Mean Corpuscular Volume 91.9 fL (78.0-98.0); Mean Platelet Volume 10.7 fL (7.4-10.4); Platelet Count 35 10x3/uL (130-400); RBC Distribution Width 15.2 % (11.5-14.5); Red Blood Cell (RBC) Count 1.97 mill/uL (4.70-6.10)
[2023-11-29] MEDS: predniSONE 20 MG TAB PO SCH (13:00)
[2023-11-29] MEDS: Benzonatate 100 MG CAP PO PRN (13:01)
[2023-11-29] MEDS ORDERED: Ipratropium/Albuterol 3 ML NEB NEB PRN (14:13)
[2023-11-29] MEDS: guaiFENesin ER 600 MG TAB PO SCH (22:13)
[2023-11-30] MEDS ORDERED: CEFAZOLIN 2 GM in Sodium Chloride 0.9% 100 ML IVPB SCH (06:00)
[2023-11-30 06:38] LABS: Hematocrit 20.8 % (42.0-52.0); Hemoglobin 7.3 g/dL (14.0-18.0); Mean Corpuscular HGB CONC 35.1 g/dL (32.0-36.0); Mean Corpuscular Volume 91.2 fL (78.0-98.0); Mean Platelet Volume 9.8 fL (7.4-10.4); Platelet Count 53 10x3/uL (130-400); RBC Distribution Width 14.6 % (11.5-14.5); Red Blood Cell (RBC) Count 2.28 mill/uL (4.70-6.10)
[2023-11-30 06:39] LABS: Lymphocytes 95 % (21-51); Neutrophil 5 % (42-75); Platelet Adequacy Comment Significant Decrease; RBC Morphology Within Normal Limits
[2023-11-30] MEDS: Cholecalciferol (Vitamin D3) 400 UNITS TAB PO SCH (07:58)
[2023-11-30] MEDS ORDERED: PROPOFOL 20 ML ONE (11:02)
[2023-11-30] MEDS ORDERED: Rocuronium Bromide 10 MG/ML (10ML VIAL) ONE (11:02)
[2023-11-30] MEDS ORDERED: Lidocaine 1% PF 5 ML VIAL ONE (11:02)
[2023-11-30] MEDS ORDERED: EPINEPHrine 1 MG/ML VIAL ONE (11:12)
[2023-11-30] MEDS ORDERED: Bupivacaine 0.25% HCL 30 ML VIAL ONE (11:12)
[2023-11-30] MEDS ORDERED: Sodium Chloride 0.9% 100 ML ONE (12:07)
[2023-11-30] MEDS ORDERED: CEFAZOLIN 2 GM VIAL ONE (12:07)
[2023-11-30] MEDS ORDERED: fentaNYL PF 100 MCG/2 ML SYRINGE ONE (12:24)
[2023-11-30] MEDS ORDERED: Ondansetron PF 4 MG/2 ML Vial ONE (12:40)
[2023-11-30] MEDS ORDERED: Dexamethasone 20 MG/5 ML VIAL ONE (12:40)
[2023-11-30] MEDS ORDERED: SUGAMMADEX SODIUM 200 MG/2 ML VIAL ONE (12:49)
[2023-11-30] MEDS ORDERED: Dexamethasone 4 mg/ml Vial ONE (12:55)
[2023-11-30] MEDS ORDERED: Acetaminophen 325 MG TAB PO PRN (14:23)
[2023-11-30] MEDS ORDERED: Morphine 2 MG/ML VIAL SLOW IVP PRN (14:23)
[2023-11-30] MEDS: HYDROcodone/Acetaminophen 5/325 mg Tablet PO PRN (15:34)
[2023-11-30 17:42] VITALS: BP 109/70; TEMP 97.8
== END 2023-11-30 18:44 | disposition home or self-care (01) | DRG 825 ==
LOC: SUATTDRO 15:07 → ERS 15:07 → SURG B 19:50 → OBSVTOIN 11-28 15:05
PROVIDERS: ADMIT Internal Medicine; ATTEND Internal Medicine
PROC: 07B50ZZ Excision of Right Axillary Lymphatic, Open Approach (ICD-10-PCS; principal; 2023-11-30)
PROC: 30233N1 Transfusion of Nonautologous Red Blood Cells into Peripheral Vein, Percutaneous Approach (ICD-10-PCS; 2023-11-30)
PROC: 3E033XZ Introduction of Vasopressor into Peripheral Vein, Percutaneous Approach (ICD-10-PCS; 2023-11-30)
DX: C83.14 Mantle cell lymphoma, lymph nodes of axilla and upper limb (principal); D64.9 Anemia, unspecified; D69.6 Thrombocytopenia, unspecified; Z88.8 Allergy status to other drugs, medicaments and biological substances
CPT/HCPCS: 36415; 36430; 71045; 80048; 80053; 82306; 83605; 83615; 83690; 84134; 84484; 84550; 85025; 85060; 86141; 86850; 86900; 86901; 86922; 88184; 88307; 88341; 88342; 88360; 93005; 96374; G0378; J0171; J0665; J1100; J2405; J2704; J7512; P9016; P9035

== ENCOUNTER 2023-12-15 09:17 | Day surgery (SDC) | payer OTHER ==
[2023-12-15] MEDS ORDERED: diphenhydrAMINE 25 MG CAP PO SCH (10:15)
[2023-12-15] MEDS ORDERED: Acetaminophen 500 MG TAB ONE (10:30)
[2023-12-15] MEDS: Acetaminophen 500 MG TAB PO SCH (10:31)
[2023-12-15 13:25] VITALS: BP 113/57; TEMP 98.3
== END 2023-12-15 13:46 | disposition home or self-care (01) ==
LOC: ONC/OP 09:17
PROVIDERS: ATTEND Internal Medicine Hematology & Oncology
DX: D64.9 Anemia, unspecified (principal); D69.6 Thrombocytopenia, unspecified; Z88.8 Allergy status to other drugs, medicaments and biological substances
CPT/HCPCS: 36430; 86850; 86870; 86900; 86901; 86922; P9016

== ENCOUNTER 2023-12-21 09:11 | Day surgery (SDC) | payer OTHER ==
[2023-12-21] MEDS ORDERED: diphenhydrAMINE 25 MG CAP PO SCH (10:30)
[2023-12-21] MEDS: Acetaminophen 500 MG TAB PO SCH (11:23)
[2023-12-21] MEDS ORDERED: Acetaminophen 500 MG TAB ONE (11:23)
[2023-12-21] MEDS ORDERED: FLU (Fluarix Triv) TS24-25(6MOS UP)/PF 45 MCG/0.5 ML Syringe IM ONE (11:45)
[2023-12-21 16:48] VITALS: BP 131/62; TEMP 98.2
== END 2023-12-21 16:50 | disposition home or self-care (01) ==
LOC: ONC/OP 09:11
PROVIDERS: ATTEND Internal Medicine Hematology & Oncology
DX: D64.9 Anemia, unspecified (principal); D69.6 Thrombocytopenia, unspecified; Z88.8 Allergy status to other drugs, medicaments and biological substances
CPT/HCPCS: 36430; 86850; 86870; 86900; 86901; 86922; P9016